=== PATIENT | female | born 1955 | race Caucasian/White ===

== ENCOUNTER 2020-06-25 12:36 | Emergency (ER) | payer OTHER, SELFPAY ==
[2020-06-25 12:47] VITALS: BP 164/76; PULSE 105; RESP 18; TEMP 37.3; O2SAT 98; BMI 20.1
[2020-06-25 12:53] VITALS: BP 148/84; PULSE 101; RESP 15; O2SAT 97
--- NOTE | 2020-06-25 12:54 | XRR_ITS ---
PROCEDURE INFORMATION: Exam: XR Right Elbow Exam date and time: 06/25/2020 1:38 PM Age: 64 years old Clinical indication: Pain and injury or trauma; Initial encounter; Blunt trauma (contusions or hematomas; Right; Injury date: 06/25/20; Patient HX: Fall over pallet lucila today, tailbone and elbow pain; Additional info: Pain after fall TECHNIQUE: Imaging protocol: XR Right elbow. Views: 3 or more views. COMPARISON: No relevant prior studies available. FINDINGS: Bones/joints: No fracture. No dislocation. No anterior or posterior fat pad sign. Soft tissues: Soft tissue calcification present adjacent to the lateral humeral epicondyle which could be due to epicondylitis. XR/XR elbow RT min 3V* [id number] IMPRESSION: No acute osseous abnormality.
--- NOTE | 2020-06-25 12:54 | XRR_ITS ---
PROCEDURE INFORMATION: Exam: XR Bilateral Hips with Pelvis when Performed Exam date and time: 06/25/2020 1:42 PM Age: 64 years old Clinical indication: Pain and injury or trauma; Fall; Initial encounter; Blunt trauma (contusions or hematomas); Does not apply; Pelvic region; Pelvic pain; Injury date: 06/25/20; Injury details: Fell over pallet lucila, elbow and tailbone pain; Additional info: Pain after fall TECHNIQUE: Imaging protocol: XR bilateral hips with pelvis when performed. Views: 2 views. COMPARISON: No relevant prior studies available. FINDINGS: Bones/joints: No fracture. No dislocation. The symphysis pubis and sacroiliac joints are not diastatic. No hip joint space narrowing. There is partial sacralization of the L5 segment on the left. Soft tissues: No acute soft tissue abnormality. XR/XR hip BI m 5V wo/w pel* [id number] IMPRESSION: No acute osseous abnormality.
--- NOTE | 2020-06-25 13:18 | W.ED.FALL ---
HPI - Fall General: Chief Complaint: Fall Stated Complaint: fell over pallet lucila/ workers comp? Time Seen by Provider: 06/25/20 13:13 History of Present Illness: HPI Narrative: 64-year-old female patient presents to the emergency department with complaints of fall. She did fall occurred at work. She reports was walking backwards, pulling loaded pallet when she tripped over an empy pallet landing on her buttocks. She reports pain in the pelvis when she walks, posterior hips. Reports right elbow pain but denies limited range of motion or limited mobility. States did hit her head on a plastic trash can, did not lose consciousness denies bleeding, denies nausea vomiting or abdominal pain. MD complaint: fall Associated symptoms-after fall: Denies abdominal pain, chest pain, headache(s) or neck pain Review of Systems General: Reports: 10 or more systems reviewed and unremarkable except in HPI and below Const: Denies: fever(s), chills or diaphoresis Eyes: Denies: blurry vision or eye redness ENMT: Denies: throat pain, dental pain or disequilibrium Card: Denies: chest pain, palpitations or irregular heart rhythm Resp: Denies: dyspnea, productive cough, non-productive cough or wheezing GI: Denies: abdominal pain, nausea or vomiting : Denies: difficulty voiding or dysuria Musc: Reports: extremity pain (bilateral hips); Denies: neck pain, back pain or limited range of motion Skin/Breast: Denies: rash or pruritus Neuro: Denies: headache(s), weakness in extremities or behavioral changes Amrit/Lymph: Denies: easy bruising Physical Exam Const: COMMON NORMALS: no acute distress, patient oriented x3, healthy appearing and alert GENERAL APPEARANCE: cooperative, comfortable and well hydrated HENMT: COMMON NORMALS: normocephalic, Normal external nose present and moist oral mucous membranes HEAD & SCALP: normocephalic NOSE: Normal external nose present Eye: COMMON NORMALS: Equal, round and reactive pupils present and EOMs intact bilaterally GENERAL EYE: appearance normal, both eyes and all related structures PUPIL: Yes Equal, round and reactive pupils present Neck/C-Spine: COMMON NORMALS: full ROM and no lymphadenopathy GENERAL: Yes normal visual inspection and Yes trachea midline CERVICAL SPINE: Yes cervical ROM normal, No pain with cervical ROM, No Cervical spine tenderness and No Paracervical muscle tenderness Lymph: LYMPHATIC: no lymphadenopathy noted Chest: COMMONS NORMALS: normal inspection of the chest Resp: COMMON NORMALS: normal respiratory effort and clear to auscultation bilaterally AUSCULTATION: clear to auscultation bilaterally Cardio: COMMON NORMALS: regular rhythm, S1 normal heart sound present, S2 normal heart sound present and Peripheral pulses 2+ throughout RHYTHM: regular rhythm HEART SOUNDS: S1 normal heart sound present and S2 normal heart sound present PERIPHERAL PULSES: Peripheral pulses 2+ throughout GI: COMMON NORMALS: Normal to inspection, nondistended, normoactive bowel sounds present, Soft to palpation and non-tender INSPECTION: Yes normal to inspection PALPATION: Yes Soft to palpation : COMMON NORMALS: Yes no CVA tenderness BLADDER/KIDNEY EXAM: Yes no CVA tenderness Back/Pelvis: COMMON NORMALS: no CVA tenderness and thoracic and lumbar spine normal to inspection THORACIC SPINE/UPPER BACK: Yes normal to inspection, Yes thoracic ROM normal and No thoracic spinal tenderness LUMBAR SPINE/LOWER BACK: Yes normal to inspection, Yes lumbar ROM normal and No lumbar spinal tenderness PELVIS: Yes buttocks normal SACROILIAC JOINTS: Yes SI joints normal SACRUM: no ecchymosis Extremity: COMMON NORMALS: normal to inspection and capillary refill normal Neuro: COMMON NORMALS: patient oriented x3 and no focal motor deficits SENSORIUM/ORIENTATION: Yes alert Psych: COMMON NORMALS: mental status grossly normal, Normal thought process present and cooperative ACTIVITY/MOTOR BEHAVIOR: Yes appropriate eye contact THOUGHT PROCESS: Normal thought process present Skin: COMMON NORMALS: no rashes or lesions noted and turgor normal SKIN IMAGES (FEMALE): 1. small 2 cm linear superficial abrasion noted GENERAL SKIN EXAM: no rashes or lesions noted and turgor normal Course Vital Signs: Vital signs: Vital Signs Temperature 98.1 F 06/25/20 14:38 Pulse Rate 95 06/25/20 14:38 Respiratory Rate 15 06/25/20 14:38 Blood Pressure 119/71 06/25/20 14:38 Pulse Oximetry 97 06/25/20 12:53 MDM - Fall Imaging Data^: Xray Ortho: Radiologist's impression: [address] [address] XRay Report Signed Patient: Aniyah Hampton #: [id number] : 6Acc#:[id number] Age/Sex: 64 / FADM Date: 06/25/20 Loc: ERRoom/Bed: Attending Dr: Ordering Provider/Ordering MD: Bryan Bermudez DO Date of Service: 06/25/20 Procedure(s): XR hip BI m 5V wo/w pel* [id number] Accession Number(s): [id number] Report Number: [id number] PROCEDURE INFORMATION: Exam: XR Bilateral Hips with Pelvis when Performed Exam date and time: 06/25/2020 1:42 PM Age: 64 years old Clinical indication: Pain and injury or trauma; Fall; Initial encounter; Blunt trauma (contusions or hematomas); Does not apply; Pelvic region; Pelvic pain; Injury date: 06/25/20; Injury details: Fell over pallet lucila, elbow and tailbone pain; Additional info: Pain after fall TECHNIQUE: Imaging protocol: XR bilateral hips with pelvis when performed. Views: 2 views. COMPARISON: No relevant prior studies available. FINDINGS: Bones/joints: No fracture. No dislocation. The symphysis pubis and sacroiliac joints are not diastatic. No hip joint space narrowing. There is partial sacralization of the L5 segment on the left. Soft tissues: No acute soft tissue abnormality. XR/XR hip BI m 5V wo/w pel* [id number] IMPRESSION: No acute osseous abnormality. Dictated By:Polo Patel Other Xray: Radiologist's impression: [place] [address] XRay Report Signed Patient: Aniyah Hampton Unit #: [id number] : 1955 Age/Sex: 64 / F ADM Date: 06/25/20 Loc: ER Room/Bed: Attending Dr: Ordering Provider/Ordering MD: Bryan Bermudez DO Date of Service: 06/25/20 Procedure(s): XR elbow RT min 3V* [id number] Accession Number(s): [id number] Report Number: [id number] PROCEDURE INFORMATION: Exam: XR Right Elbow Exam date and time: 06/25/2020 1:38 PM Age: 64 years old Clinical indication: Pain and injury or trauma; Initial encounter; Blunt trauma (contusions or hematomas; Right; Injury date: 06/25/20; Patient HX: Fall over pallet lucila today, tailbone and elbow pain; Additional info: Pain after fall TECHNIQUE: Imaging protocol: XR Right elbow. Views: 3 or more views. COMPARISON: No relevant prior studies available. FINDINGS: Bones/joints: No fracture. No dislocation. No anterior or posterior fat pad sign. Soft tissues: Soft tissue calcification present adjacent to the lateral humeral epicondyle which could be due to epicondylitis. XR/XR elbow RT min 3V* [id number] IMPRESSION: No acute osseous abnormality. Dictated By: Polo Patel Signed By: Polo Patel Signed Date/Time: 06/25/20 1409 Discharge Plan Discharge Patient Disposition: Home Clinical Impression: Fall against object, Contusion of right hip, initial encounter Contusion of hip, left Qualifiers: Encounter type: initial encounter Qualified Code(s): S70.02XA - Contusion of left hip, initial encounter Elbow abrasion Qualifiers: Encounter type: initial encounter Laterality: right Qualified Code(s): S50.311A - Abrasion of right elbow, initial encounter Condition: Stable Prescriptions: No Action Calcium 500 1 tab PO DAILY RF: 0 Discharge Orders: Discharge Order (Routine); Ordered 06/25/20 Ordered By: Neema Sheppard Referrals: Rafael Felder MD [Primary Care Provider] - Discharge Diet: Usual diet Discharge Activity: Resume usual activity Patient Instructions: Minor Head Injury (ED), Contusion in Adults (ED), Abrasion (ED), Fall Prevention (ED) Activity Restrictions/Additional Instructions: You may take ibuprofen and Tylenol as needed for pain You may experience increased soreness and pain over the next 2 to 3 days If you develop muscle weakness or incontinence of bowel or bladder, change of personality or nausea vomiting/abdominal pain return to the emergency room for further work-up. Discharge Date/Time: 06/25/20 14:39 Coding Level of Care Code ED Night Coordinator for [facility] Exam Comprehensive
[2020-06-25 14:38] VITALS: BP 119/71; PULSE 95; RESP 15; TEMP 36.7
== END 2020-06-25 14:39 | disposition home or self-care (01) ==
PROVIDERS: Emergency Provider Nurse Practitioner Family; PCP Family Medicine
DX: S70.02XA Contusion of left hip, initial encounter (principal); S50.311A Abrasion of right elbow, initial encounter; S70.01XA Contusion of right hip, initial encounter; W18.09XA Striking against other object with subsequent fall, initial encounter; Y99.0 Civilian activity done for income or pay
CPT/HCPCS: 12345; 73080; 73523; 99281; 99283

== ENCOUNTER 2020-08-22 14:06 | Outpatient (RCR) | payer OTHER, SELFPAY | END 2020-09-16 23:59 | disposition home or self-care (01) | LOC: SPT 14:06 | PROVIDERS: PCP Family Medicine; Referring Provider Family Medicine; Visit Provider Family Medicine | DX: S30.0XXD Contusion of lower back and pelvis, subsequent encounter (principal); X58.XXXD Exposure to other specified factors, subsequent encounter | CPT/HCPCS: 97110; 97162 ==

== ENCOUNTER 2020-09-17 06:00 | Outpatient (RCR) | payer OTHER, SELFPAY | END 2020-10-04 23:00 | disposition home or self-care (01) | LOC: SPT 06:00 | PROVIDERS: PCP Family Medicine; Referring Provider Family Medicine; Visit Provider Family Medicine | DX: S30.0XXD Contusion of lower back and pelvis, subsequent encounter (principal); X58.XXXD Exposure to other specified factors, subsequent encounter | CPT/HCPCS: 97110 ==

== ENCOUNTER 2020-11-11 07:00 | Outpatient (CLI) | payer OTHER, SELFPAY ==
--- NOTE | 2020-11-11 07:15 | MR_ITS ---
WS: [id number] MRI RIGHT SHOULDER NONCONTRAST TECHNIQUE: Sagittal T2, coronal T1, T2 and proton density imaging. Axial gradient PDE imaging. CLINICAL INFORMATION: continued pain in shoulder injured 06/25/20 COMPARISON: None. FINDINGS: Mild degenerative arthritis AC joint. Mild downsloping acromion. Subacromial spurring. Moderate narro wing of the subacromial space. Tendinopathy in the distal supraspinatus. Normal infraspinatus. Normal teres minor and subscapularis. No high-grade rotator cuff tears. Normal biceps tendon in the bicipital groove. Normal biceps labral anchor. Small anterior superior la bral tear. Degenerative fraying of the glenoid labrum. MR/MR shoulder RT wo con* [id number] IMPRESSION: 1. Mild degenerative arthritis AC joint with mild downsloping acromion. 2. Tendinopathy in the distal supraspinatus. No high-grade rotator cuff tears. 3. Normal biceps tendon in the bicipital groove. 4. Small chronic appearing anterior superior labral tear. Normal biceps labral anchor.
== END 2020-11-11 07:01 | disposition home or self-care (01) ==
LOC: RADSHAW 07:02
PROVIDERS: PCP Family Medicine; Visit Provider Family Medicine
DX: M25.511 Pain in right shoulder (principal)
CPT/HCPCS: 73221

== ENCOUNTER → 2020-11-20 16:01 | Outpatient (BNVA) | payer OTHER, SELFPAY | PROVIDERS: PCP Family Medicine; Referring Provider Family Medicine; Visit Provider Specialist | DX: S43.431D Superior glenoid labrum lesion of right shoulder, subsequent encounter; S46.211D Strain of muscle, fascia and tendon of other parts of biceps, right arm, subsequent encounter; M25.511 Pain in right shoulder; W19.XXXD Unspecified fall, subsequent encounter | CPT/HCPCS: 73030 ==

== ENCOUNTER 2020-12-16 13:15 | Outpatient (CLI) | payer OTHER, SELFPAY ==
--- NOTE | 2020-12-16 13:22 | MR_ITS ---
WS: [id number] MRI RIGHT SHOULDER ARTHROGRAM TECHNIQUE: Sagittal T2, coronal T1, T2 and proton density imaging. Axial gradient PDE imaging. Post a rthrogram imaging. CLINICAL INFORMATION: M25.519 - Pain in unspecified shoulder COMPARISON: November 11, 2020 FINDINGS: Adequate opacification of the shoulder capsule with good distention. Normal biceps labral a nchor. Fissuring involving the anterosuperior glenoid labrum parallels the glenoid and most likely re present sublabral foramen rather than SLAP tear. Biceps labral anchor appears intact. Recommend corre lation with shoulder instability. Labrum is otherwise intact. Normal middle glenohumeral ligament. No rmal intra-articular biceps tendon. No other significant changes from previous. MR/MR shoulder RT wo/w con [id number] IMPRESSION: 1. Fissuring at the anterosuperior labrum likely represent sublabral foramen r ather than SLAP tear. Recommend correlation shoulder instability. 2. Normal middle glenohumeral ligament. 3. Normal biceps labral anchor. 4. No other changes from previous.
--- NOTE | 2020-12-16 13:30 | IR_ITS ---
WS: [id number] SHOULDER ARTHROGRAM RIGHT Fluoroscopic guided right shoulder arthrogram CLINICAL INFORMATION: M25.519 - Pain in unspecified shoulder COMPARISON: None. PROCEDURE: The procedure including risks, benefits and complications were discussed with the patient, who agreed to proceed. Using sterile technique, the patient was prepped and draped in the usual ster ile fashion. After 1% lidocaine injection using fluoroscopic guidance, a 22-gauge spinal needle was a dvanced into the glenohumeral joint. Approximately 13 ml of a solution containing 10ml normal saline, 5 ml Omnipaque 240, 5 ml 1% lidocaine, and 0.1 ml gadolinium was administered. No immediate complica tions. FLUOROSCOPY TIME: 0.4 minutes. IR/IR arthrogram shoulderRT [id number] IMPRESSION: Uncomplicated fluoroscopic-guided right shoulder arthrogram. MRI to follow.
[2020-12-16] MEDS: iohexol 240 mg/mL 50 mL Btl INTRA-ARTI (14:20)
== END 2020-12-16 13:16 | disposition home or self-care (01) ==
PROVIDERS: PCP Family Medicine; Visit Provider Specialist
DX: M25.511 Pain in right shoulder (principal)
CPT/HCPCS: 23350; 73223; 77002; A9577; Q9966

== ENCOUNTER 2020-12-26 14:27 | Outpatient (CLI) | payer MEDICARE, OTHER, SELFPAY ==
--- NOTE | 2020-12-26 14:39 | XR_ITS ---
WS: [id number] DEXA (DUAL ENERGY X-RAY ABSORPTIOMETRY) Bone mineral density was performed using a [employer] OTR machine. HISTORY: OSTEOPOROSIS COMPARISON: None available. Lumbar spine BMD (L1-L4): 0.771 g/cm2 T score: -3.4 Z score: -1.6 Total hip BMD: Left: 0.711 g/cm2. T score: -2.4 Z score: -1.0 Right: 0.725 g/cm2. T score: -2.2 Z score: -0.9 10 year probability of a major osteoporotic fracture is 11%. XR/XR DEXA axial skeleton* [id number] IMPRESSION: OSTEOPOROSIS based upon the WHO classification for females.
== END 2020-12-26 14:28 | disposition home or self-care (01) ==
LOC: RADWPI 14:36
PROVIDERS: PCP Family Medicine; Visit Provider Family Medicine
DX: M81.0 Age-related osteoporosis without current pathological fracture (principal)
CPT/HCPCS: 77080

== ENCOUNTER 2021-01-09 08:35 | Outpatient (RCR) | payer OTHER, SELFPAY | END 2021-01-15 23:59 | disposition home or self-care (01) | LOC: SPT 08:35 | PROVIDERS: PCP Family Medicine; Referring Provider Specialist; Visit Provider Specialist | DX: M75.01 Adhesive capsulitis of right shoulder (principal) | CPT/HCPCS: 97110; 97161 ==

== ENCOUNTER 2021-01-16 06:00 | Outpatient (RCR) | payer OTHER, SELFPAY | END 2021-02-14 23:59 | disposition home or self-care (01) | LOC: SPT 06:00 | PROVIDERS: PCP Family Medicine; Referring Provider Specialist; Visit Provider Specialist | DX: M75.01 Adhesive capsulitis of right shoulder (principal) | CPT/HCPCS: 97110 ==

== ENCOUNTER → 2021-02-13 08:59 | Outpatient (BNVA) | payer OTHER, MEDICARE, SELFPAY | PROVIDERS: PCP Family Medicine; Visit Provider Internal Medicine Rheumatology | DX: M81.0 Age-related osteoporosis without current pathological fracture (principal); M27.40 Unspecified cyst of jaw; M54.5 Low back pain; G89.29 Other chronic pain; Z79.899 Other long term (current) drug therapy | CPT/HCPCS: 99204 ==

== ENCOUNTER 2021-02-13 11:02 | Outpatient (CLI) | payer OTHER, MEDICARE, SELFPAY ==
--- NOTE | 2021-02-13 11:14 | XR_ITS ---
WS: [id number] Exam: XR pelvis 1-2V* [id number] Date/Time of Exam: 02/13/2021 11:20 AM Reason For Exam: M54.5 - Low back pain No fracture or dislocation. Mild DJD of the SI joints. The hips are intact. Normal soft tissues. XR/XR pelvis 1-2V* 78961 IMPRESSION: 1. No fracture or bone destruction. 2. Mild SI joint DJD.
--- NOTE | 2021-02-13 11:14 | XR_ITS ---
WS: [id number] Exam: XR lumbar spine 2-3V* [id number] Date/Time of Exam: 02/13/2021 11:20 AM Reason For Exam: M54.5 - Low back pain Comparison 02/13/2021. No fracture or dislocation. Disc spaces are preserved. Posterior elements are intact. Partial sacrali zation of L5. 2 mm calcification superimposes the right kidney and could represent a renal stone. XR/XR lumbar spine 2-3V* [id number] IMPRESSION: 1. No fracture or malalignment noted. 2. Possible small right renal stone.
[2021-02-13 11:49] LABS: Basophils % 0.7 %; Eosinophils # 0.1 10^3/uL (0.0-0.8); Eosinophils % 2.4 %; Hematocrit 40.7 % (37.0-47.0); Lymphocytes # 1.5 10^3/uL (0.8-4.8); Mean Corpuscular HGB Conc 31.9 g/dL (30.0-36.0); Mean Corpuscular Hemoglobin 30.1 pg (28.0-34.0); Mean Corpuscular Volume 94.2 fL (81-99); Mean Platelet Volume 8.7 fL (7.4-10.4); Monocytes # 0.4 10^3/uL (0.2-0.9); Monocytes % 8.5 %; Neutrophils % 51.2 %; Nucleated Red Blood Cells % 0 %; Platelet Count 264 10^3/cmm (130-400); Red Blood Count 4.32 10^6/uL (4.1-5.3); Red Cell Distribution Width 12.6 % (12.1-15.1); White Blood Count 4.1 10^3/uL (4.0-10.0)
[2021-02-13 12:25] LABS: 25 Hydroxy Vitamin D 47 ng/mL (30-100); Calcium 9.1 mg/dL (8.5-10.5); Magnesium 2.2 mg/dL (1.7-2.3); Phosphorus 3.9 mg/dL (2.5-4.5); Thyroid Stimulating Hormone 1.19 uIU/mL (0.27-4.20)
[2021-02-13 13:00] LABS: Parathyroid Hormone 28.2 pg/mL (15-65)
== END 2021-02-13 11:03 | disposition home or self-care (01) ==
PROVIDERS: PCP Family Medicine; Visit Provider Internal Medicine Rheumatology
DX: G89.29 Other chronic pain (principal); M54.5 Low back pain; M81.0 Age-related osteoporosis without current pathological fracture; Z79.899 Other long term (current) drug therapy
CPT/HCPCS: 36415; 72100; 72170; 82306; 82310; 83735; 83970; 84100; 84443; 85025

== ENCOUNTER → 2021-04-10 13:27 | Outpatient (BNVA) | payer OTHER, MEDICARE, SELFPAY | PROVIDERS: PCP Family Medicine; Visit Provider Internal Medicine Rheumatology | DX: M81.0 Age-related osteoporosis without current pathological fracture (principal); M27.40 Unspecified cyst of jaw | CPT/HCPCS: 99213 ==

== ENCOUNTER 2021-08-29 11:29 | Outpatient (CLI) | payer MEDICARE, OTHER, SELFPAY ==
[2021-08-29 11:38] VITALS: BMI 20.1
[2021-08-29 11:40] VITALS: BP 126/72; PULSE 63; RESP 16; TEMP 36.6; O2SAT 99
[2021-08-29 13:38] VITALS: BP 109/67; PULSE 59; RESP 16; TEMP 36.3; O2SAT 98
== END 2021-08-29 11:30 | disposition home or self-care (01) ==
LOC: OPS 11:54
PROVIDERS: PCP Family Medicine; Visit Provider Family Medicine
DX: U07.1 COVID-19 (principal)
CPT/HCPCS: 96365

== ENCOUNTER → 2021-09-09 10:25 | Outpatient (BNVA) | payer MEDICARE, OTHER, SELFPAY | PROVIDERS: PCP Family Medicine; Visit Provider Internal Medicine Rheumatology | DX: Z79.899 Other long term (current) drug therapy (principal); M81.0 Age-related osteoporosis without current pathological fracture | CPT/HCPCS: 36415; 80076; 82565; 85025; 86140 ==

== ENCOUNTER → 2021-10-06 13:52 | Outpatient (BNVA) | payer MEDICARE, OTHER, SELFPAY | PROVIDERS: PCP Family Medicine; Visit Provider Internal Medicine Rheumatology | DX: M81.0 Age-related osteoporosis without current pathological fracture (principal); Z79.899 Other long term (current) drug therapy | CPT/HCPCS: 99214 ==

== ENCOUNTER 2021-11-11 08:15 | Outpatient (CLI) | payer MEDICARE, OTHER, SELFPAY ==
--- NOTE | 2021-11-11 08:23 | XR_ITS ---
WS: [id number] Chest 2 views, 11/11/2021 Clinical Data: DYSPNEA Comparison: None. Findings: No nodules, masses or effusions are seen. The heart is normal. The pulmonary vascularity is not increased. No pneumonia or pneumothorax is seen. The aortic arch and descending thoracic aorta s how tortuosity. XR/XR chest 2V* 72902 Impression: Atherosclerosis.
== END 2021-11-11 08:16 | disposition home or self-care (01) ==
LOC: RAD 08:18
PROVIDERS: PCP Family Medicine; Visit Provider Family Medicine
DX: R06.00 Dyspnea, unspecified (principal); I70.90 Unspecified atherosclerosis
CPT/HCPCS: 71046

== ENCOUNTER → 2022-01-08 09:54 | Outpatient (BNVA) | payer MEDICARE, OTHER, SELFPAY | PROVIDERS: PCP Family Medicine; Visit Provider Internal Medicine Cardiovascular Disease | DX: R07.9 Chest pain, unspecified (principal); R00.2 Palpitations; Z82.49 Family history of ischemic heart disease and other diseases of the circulatory system; R06.02 Shortness of breath ==

== ENCOUNTER 2022-03-23 16:27 | Outpatient (CLI) | payer MEDICARE, OTHER, SELFPAY ==
[2022-03-23 16:59] LABS: Basophils % 0.7 %; Eosinophils # 0.1 10^3/uL (0.0-0.8); Eosinophils % 1.5 %; Hematocrit 39.7 % (37.0-47.0); Hemoglobin 13.1 g/dL (11.5-15.3); Lymphocytes # 2.1 10^3/uL (0.8-4.8); Lymphocytes % 36.5 %; Mean Corpuscular Hemoglobin 30.3 pg (28.0-34.0); Mean Corpuscular Volume 91.9 fl (81-99); Mean Platelet Volume 9.2 fL (7.4-10.4); Monocytes # 0.4 10^3/uL (0.2-0.9); Neutrophils # 3.24 10^3/uL (1.8-7.7); Neutrophils % 55.1 %; Nucleated Red Blood Cells % 0 %; Platelet Count 228 10^3/cmm (130-400); Red Blood Count 4.32 10^6/uL (4.1-5.3); White Blood Count 5.9 10^3/uL (4.0-10.0)
[2022-03-23 17:43] LABS: Alanine Aminotransferase 16 U/L (0-33); Albumin Level 4.8 g/dL (3.5-5.2); Alkaline Phosphatase 58 IU/L (35-105); Aspartate Amino Transferase 21 U/L (0-32); Calcium 9.7 mg/dL (8.5-10.5); Globulin 2.5 g/dL (1.3-4.6); Total Bilirubin 0.2 mg/dL (0.15-1.2); Total Protein 7.3 g/dL (6.6-8.7)
[2022-03-23 18:04] LABS: 25 Hydroxy Vitamin D > 100 ng/mL (30-100)
== END 2022-03-23 16:28 | disposition home or self-care (01) ==
LOC: LAB 16:32
PROVIDERS: PCP Family Medicine; Visit Provider Internal Medicine Rheumatology
DX: Z79.899 Other long term (current) drug therapy (principal); M81.0 Age-related osteoporosis without current pathological fracture
CPT/HCPCS: 36415; 80076; 82040; 82306; 82310; 82565; 85025; 86140

== ENCOUNTER → 2022-03-24 12:37 | Outpatient (BNVA) | payer MEDICARE, OTHER, SELFPAY | PROVIDERS: PCP Family Medicine; Visit Provider Internal Medicine Rheumatology | DX: M81.0 Age-related osteoporosis without current pathological fracture (principal); Z79.899 Other long term (current) drug therapy | CPT/HCPCS: 99214 ==

== ENCOUNTER → 2022-04-14 10:52 | Outpatient (BNVA) | payer MEDICARE, OTHER, SELFPAY | PROVIDERS: PCP Family Medicine; Visit Provider Internal Medicine Cardiovascular Disease | DX: R00.2 Palpitations (principal); R06.02 Shortness of breath; R07.9 Chest pain, unspecified; Z82.49 Family history of ischemic heart disease and other diseases of the circulatory system | CPT/HCPCS: 99213; 99214 ==

== ENCOUNTER 2022-06-30 09:43 | Outpatient (CLI) | payer MEDICARE, OTHER, SELFPAY ==
[2022-06-30 10:17] LABS: Basophils % 0.7 %; Eosinophils % 0.4 %; Hematocrit 38.3 % (37.0-47.0); Hemoglobin 12.6 g/dL (11.5-15.3); Lymphocytes # 0.7 10^3/uL (0.8-4.8); Lymphocytes % 24.5 %; Mean Corpuscular HGB Conc 32.9 g/dL (30.0-36.0); Mean Corpuscular Hemoglobin 30.4 pg (28.0-34.0); Mean Corpuscular Volume 92.3 fl (81-99); Mean Platelet Volume 8.6 fL (7.4-10.4); Monocytes # 0.4 10^3/uL (0.2-0.9); Monocytes % 14.4 %; Neutrophils # 1.67 10^3/uL (1.8-7.7); Nucleated Red Blood Cells % 0 %; Platelet Count 187 10^3/cmm (130-400); Red Blood Count 4.15 10^6/uL (4.1-5.3); Red Cell Distribution Width 12.5 % (12.1-15.1); White Blood Count 2.8 10^3/uL (4.0-10.0)
[2022-06-30 10:41] LABS: Erythrocyte Sedimentation Rate 4 mm/hr (0-15)
[2022-06-30 10:49] LABS: Alanine Aminotransferase 18 U/L (0-33); Albumin Level 4.5 g/dL (3.5-5.2); Alkaline Phosphatase 77 U/L (35-105); Aspartate Amino Transferase 24 U/L (0-32); Calcium 9.4 mg/dL (8.5-10.5); Globulin 2.4 g/dL (1.3-4.6); Magnesium 1.9 mg/dL (1.7-2.3); Potassium 4.3 mmol/L (3.5-5.1); Total Bilirubin 0.2 mg/dL (0.15-1.2); Total Protein 6.9 g/dL (6.6-8.7)
[2022-06-30 11:02] LABS: 25 Hydroxy Vitamin D 77 ng/mL (30-100)
== END 2022-06-30 09:44 | disposition home or self-care (01) ==
LOC: LAB 09:46
PROVIDERS: PCP Family Medicine; Visit Provider Internal Medicine Rheumatology
DX: R53.83 Other fatigue (principal); M81.0 Age-related osteoporosis without current pathological fracture; Z79.899 Other long term (current) drug therapy
CPT/HCPCS: 36415; 80076; 82306; 82310; 82565; 83735; 84132; 85025; 85651; 86140

== ENCOUNTER 2022-07-07 06:54 | Outpatient (CLI) | payer MEDICARE, OTHER, SELFPAY ==
[2022-07-07 07:08] VITALS: BMI 20.1
--- NOTE | 2022-07-07 07:09 | ECG_ITS ---
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 Interpretive Statements NAME OF STUDY: EXERCISE SESTAMIBI STRESS TEST INDICATION: Chest Pain Baseline blood pressure of 118/71 mm Hg, heart rate of 56 beats per minute and oxygen saturation of 97%. EKG showed sinus bradycardia, left axis deviation and incomplete right bundle branch. Possible left atrial enlargement. The patient exercised for 9 minutes 41 seconds on a standard Stefan protocol. Patient attained a maximum heart rate of 148 beats per minute(96% of the maximum predicted heart rate) with a blood pressure at the peak exercise of 201/80 mm Hg and oxygen saturation 89%. The EKG at the peak exercise revealed sinus tachycardia with no significant ST-T wave changes. Patient did not have any chest pain or any significant arrhythmis with the exercise During the recovery phase, there were no new changes. Blood pressure at the end of the recovery phase was 115/77 mm Hg with a heart rate of 81 beats per minute and oxygen saturation of 99%. CONCLUSION: 1. Normal EKG response to treadmill exercise. 2. No exercise-induced chest pain or cardiac arrhythmia. 3. Excellent exercise tolerance, attained a maximum of 13.5 METs. Maximum VO2 of third 47.3 mL/kg/min. 4. Baseline normal blood pressure with normal response to exercise. 5. Perfusion scan will be documented separately. Electronically Signed On 07-07-2022 13:07:23 CDT by Kennedi Benjamin M.D. [email or web address] [facility].[employer]/[id number]
--- NOTE | 2022-07-07 07:09 | NMCV_ITS ---
NM chiov perf SPECT r/s* [id number] Aniyah Hampton Age: 66 Gender: F : 1955 Exam Date: 07/07/2022 07:09 Ordering Phys: Kennedi Benjamin MD ([email or web address]) Technologist: HERMELINDO Patrick Exam Location: [facility] Indications: CHEST PAIN STRESS TEST Please see separate stress test report in [facility] for full findings IMAGE PROTOCOL Rest/Stress 1 Exercise Day Radiopharmaceutical Dose (mCi) Administration Site Administered by Rest: Tc-99m 10.9 IV HERMELINDO Caldera Sestamibi Stress:Tc-99m 32.6 IV HERMELINDO Caldera Sestamibi Rest: 07-Jul-2022 60 Discovery 630 Stress: 07-Jul-2022 30 Discovery 630 Radiopharmaceutical was injected at 90% maximum heart rate. Images obtained in supine and prone position. SPECT RESULTS Technical Quality: Excellent Raw Data Analysis: Normal Image Corrections: No attenuation or motion correction applied Summed Stress Score: 0 Summed Rest Score: 0 Summed Difference Score: 0 PERFUSION FINDINGS SPECT images demonstrate homogeneous tracer distribution throughout the myocardium. FUNCTIONAL RESULTS (calculated via Gated SPECT) Stress Image LV EF (%): 81 Stress EDV (mL):57 TID: 1 Stress ESV (mL):11 FUNCTIONAL FINDINGS: The left ventricle is normal in size. Transient Ischemia Dilatation of 1. There is normal left ventricular systolic function. The left ventricular ejection fraction is normal with a value of 81%. There is hyperdynamic left ventricular wall thickening. IMPRESSIONS 1. Myocardial perfusion imaging is normal. 2. Overall left ventricular systolic function is normal without regional wall motion abnormalities, LVEF=81%. 3. No EKG changes with exercise. Refer to separate report for details. Kennedi Benjamin MD (Electronically Signed) Final Date: 07 July 2022 13:01 S
[2022-07-07 09:16] VITALS: BP 110/78; PULSE 78
== END 2022-07-07 06:55 | disposition home or self-care (01) ==
LOC: CDL 06:56
PROVIDERS: PCP Family Medicine; Visit Provider Internal Medicine Cardiovascular Disease
DX: R07.9 Chest pain, unspecified (principal)
CPT/HCPCS: 78452; 93017; A9500

== ENCOUNTER 2022-07-07 09:59 | Outpatient (CLI) | payer MEDICARE, OTHER, SELFPAY ==
[2022-07-07 10:46] LABS: Basophils % 1.1 %; Eosinophils # 0.1 10^3/uL (0.0-0.8); Eosinophils % 1.6 %; Hemoglobin 12.2 g/dL (11.5-15.3); Lymphocytes # 1.5 10^3/uL (0.8-4.8); Lymphocytes % 38.9 %; Mean Corpuscular Hemoglobin 30.3 pg (28.0-34.0); Mean Platelet Volume 8.9 fL (7.4-10.4); Monocytes # 0.3 10^3/uL (0.2-0.9); Monocytes % 7.2 %; Neutrophils % 50.9 %; Nucleated Red Blood Cells % 0 %; Platelet Count 238 10^3/cmm (130-400); Red Blood Count 4.02 10^6/uL (4.1-5.3); Red Cell Distribution Width 12.3 % (12.1-15.1); White Blood Count 3.7 10^3/uL (4.0-10.0)
[2022-07-07 11:07] LABS: Albumin Level 4.1 g/dL (3.5-5.2)
== END 2022-07-07 10:00 | disposition home or self-care (01) ==
LOC: LAB 10:04
PROVIDERS: PCP Family Medicine; Visit Provider Internal Medicine Rheumatology
DX: R79.89 Other specified abnormal findings of blood chemistry (principal); Z79.899 Other long term (current) drug therapy
CPT/HCPCS: 36415; 82040; 85025

== ENCOUNTER 2022-07-14 09:23 | Outpatient (CLI) | payer MEDICARE, OTHER, SELFPAY ==
[2022-07-14 09:49] LABS: Ionized Calcium 1.2 mmol/L (1.1-1.4)
[2022-07-14 09:50] LABS: Basophils # 0.1 10^3/uL (0.0-0.1); Basophils % 1.5 %; Eosinophils % 1.2 %; Hematocrit 36.8 % (37.0-47.0); Hemoglobin 12.1 g/dL (11.5-15.3); Lymphocytes # 1.3 10^3/uL (0.8-4.8); Lymphocytes % 36.9 %; Mean Corpuscular HGB Conc 32.9 g/dL (30.0-36.0); Mean Corpuscular Volume 91.3 fl (81-99); Mean Platelet Volume 8.8 fL (7.4-10.4); Monocytes # 0.3 10^3/uL (0.2-0.9); Monocytes % 8.3 %; Neutrophils # 1.77 10^3/uL (1.8-7.7); Neutrophils % 52.1 %; Nucleated Red Blood Cells % 0 %; Platelet Count 243 10^3/cmm (130-400); Red Blood Count 4.03 10^6/uL (4.1-5.3); Red Cell Distribution Width 12.4 % (12.1-15.1); White Blood Count 3.4 10^3/uL (4.0-10.0)
[2022-07-14 10:07] LABS: Calcium 9.7 mg/dL (8.5-10.5); Magnesium 2.1 mg/dL (1.7-2.3); Potassium 4.2 mmol/L (3.5-5.1)
== END 2022-07-14 09:24 | disposition home or self-care (01) ==
LOC: LAB 09:26
PROVIDERS: PCP Family Medicine; Visit Provider Internal Medicine Rheumatology
DX: M81.0 Age-related osteoporosis without current pathological fracture (principal); R06.02 Shortness of breath; Z79.899 Other long term (current) drug therapy
CPT/HCPCS: 36415; 82310; 82330; 83735; 84132; 85025

== ENCOUNTER 2022-08-13 14:30 | Outpatient (CLI) | payer MEDICARE, OTHER, SELFPAY ==
[2022-08-13 15:15] LABS: Basophils % 0.9 %; Eosinophils # 0.1 10^3/uL (0.0-0.8); Eosinophils % 1.5 %; Hematocrit 35.2 % (37.0-47.0); Hemoglobin 11.9 g/dL (11.5-15.3); Lymphocytes # 1.4 10^3/uL (0.8-4.8); Lymphocytes % 31.6 %; Mean Corpuscular HGB Conc 33.8 g/dL (30.0-36.0); Mean Corpuscular Hemoglobin 30.9 pg (28.0-34.0); Mean Corpuscular Volume 91.4 fl (81-99); Mean Platelet Volume 9.3 fL (7.4-10.4); Monocytes # 0.3 10^3/uL (0.2-0.9); Neutrophils # 2.71 10^3/uL (1.8-7.7); Neutrophils % 59.8 %; Nucleated Red Blood Cells % 0 %; Platelet Count 224 10^3/cmm (130-400); Red Blood Count 3.85 10^6/uL (4.1-5.3); Red Cell Distribution Width 12.9 % (12.1-15.1); White Blood Count 4.5 10^3/uL (4.0-10.0)
== END 2022-08-13 14:31 | disposition home or self-care (01) ==
LOC: LAB 14:35
PROVIDERS: PCP Family Medicine; Visit Provider Internal Medicine Rheumatology
DX: M81.0 Age-related osteoporosis without current pathological fracture (principal); Z79.899 Other long term (current) drug therapy
CPT/HCPCS: 36415; 85025; 90686

== ENCOUNTER 2022-09-22 14:02 | Outpatient (CLI) | payer MEDICARE, OTHER, SELFPAY ==
[2022-09-22 14:38] LABS: Basophils # 0.1 10^3/uL (0.0-0.1); Basophils % 1.5 %; Eosinophils % 0.8 %; Hematocrit 40.2 % (37.0-47.0); Hemoglobin 12.9 g/dL (11.5-15.3); Lymphocytes # 1.8 10^3/uL (0.8-4.8); Lymphocytes % 38.2 %; Mean Corpuscular HGB Conc 32.1 g/dL (30.0-36.0); Mean Corpuscular Hemoglobin 29.9 pg (28.0-34.0); Mean Corpuscular Volume 93.1 fl (81-99); Mean Platelet Volume 9.2 fL (7.4-10.4); Monocytes # 0.3 10^3/uL (0.2-0.9); Monocytes % 6.1 %; Neutrophils # 2.53 10^3/uL (1.8-7.7); Neutrophils % 53.2 %; Nucleated Red Blood Cells % 0 %; Platelet Count 242 10^3/cmm (130-400); Red Blood Count 4.32 10^6/uL (4.1-5.3); Red Cell Distribution Width 12.5 % (12.1-15.1); White Blood Count 4.8 10^3/uL (4.0-10.0)
[2022-09-22 15:16] LABS: 25 Hydroxy Vitamin D 71 ng/mL (30-100); Alanine Aminotransferase 20 U/L (0-33); Albumin Level 4.4 g/dL (3.5-5.2); Alkaline Phosphatase 78 U/L (35-105); Aspartate Amino Transferase 24 U/L (0-32); Glomerular Filtration Rate 83.7 mL/min (90-130); Magnesium 2.2 mg/dL (1.7-2.3); Thyroid Stimulating Hormone 1.18 uIU/mL (0.27-4.20); Total Bilirubin 0.2 mg/dL (0.15-1.2); Total Protein 7.4 g/dL (6.6-8.7)
[2022-09-22 15:43] LABS: Free T4 Free Thyroxine 1.26 ng/dL (0.82-1.77)
== END 2022-09-22 14:03 | disposition home or self-care (01) ==
PROVIDERS: PCP Family Medicine; Visit Provider Internal Medicine Rheumatology
DX: M81.0 Age-related osteoporosis without current pathological fracture (principal); Z79.899 Other long term (current) drug therapy; R53.83 Other fatigue
CPT/HCPCS: 36415; 80076; 82306; 82310; 82565; 83735; 84439; 84443; 85025; 86140; 99214

== ENCOUNTER → 2023-03-22 09:40 | Outpatient (BNVA) | payer MEDICARE, OTHER, SELFPAY | PROVIDERS: PCP Family Medicine; Visit Provider Internal Medicine Rheumatology | DX: M81.0 Age-related osteoporosis without current pathological fracture (principal); Z79.899 Other long term (current) drug therapy; R53.83 Other fatigue | CPT/HCPCS: 36415; 80076; 82306; 82310; 82565; 83735; 85025; 86140; 99214 ==

== ENCOUNTER → 2023-04-13 10:29 | Outpatient (BNVA) | payer MEDICARE, OTHER, SELFPAY | PROVIDERS: PCP Family Medicine; Visit Provider Internal Medicine Cardiovascular Disease | DX: R00.2 Palpitations (principal); Z82.49 Family history of ischemic heart disease and other diseases of the circulatory system | CPT/HCPCS: 99213 ==

== ENCOUNTER → 2023-04-14 08:37 | Outpatient (BNVA) | payer MEDICARE, OTHER, SELFPAY | PROVIDERS: PCP Family Medicine; Visit Provider Family Medicine | DX: R53.83 Other fatigue (principal); Z13.1 Encounter for screening for diabetes mellitus; Z79.899 Other long term (current) drug therapy; Z13.220 Encounter for screening for lipoid disorders | CPT/HCPCS: 80061; 82947 ==

== ENCOUNTER → 2023-10-20 14:51 | Outpatient (BNVA) | payer MEDICARE, OTHER, SELFPAY | PROVIDERS: PCP Family Medicine; Visit Provider Internal Medicine Rheumatology | DX: M81.0 Age-related osteoporosis without current pathological fracture (principal); Z79.899 Other long term (current) drug therapy; R53.83 Other fatigue | CPT/HCPCS: 36415; 80076; 82306; 82310; 82565; 85025; 86140; 99214 ==

== ENCOUNTER 2024-04-11 12:44 | Outpatient (CLI) | payer MEDICARE, OTHER, SELFPAY ==
--- NOTE | 2024-04-11 13:00 | XR_ITS ---
WS: [id number] SCREENING DEXA SCAN [employer] CLINICAL INFORMATION: M81.0 - Age-related osteoporosis without current patholog... COMPARISON: 2020 FINDINGS: The L1-L4 bone mineral density measures 0.930 g/cm2. This corresponds to a T score score of -2.1 and Z score of -0.1. Left femoral neck bone mineral density measures 0.718 g/cm2. This corresponds to a T score of -2.3 an d Z score of -0.7. Right femoral neck bone mineral density measures 0.722 g/cm2. This corresponds to a T score -2.3of an d Z score of -0.7. Mean femoral neck bone mineral density measures 0.720 g/cm2. This corresponds to a T score of -2.3 an d Z score of -0.7. XR/XR DEXA axial skeleton* [id number] IMPRESSION: Osteopenia lumbar spine. Osteopenia femoral necks. Patient's FRAX calculated 10 year probability for major osteoporotic fracture i s 11.1% and osteoporotic hip fracture is 2.5%. Bone mineral density lumbar spine increased 12.9% bone mineral density in the femoral necks increased 0.1%
== END 2024-04-11 12:45 | disposition home or self-care (01) ==
LOC: RAD 12:44
PROVIDERS: PCP Family Medicine; Visit Provider Internal Medicine Rheumatology
DX: Z13.820 Encounter for screening for osteoporosis (principal); M81.0 Age-related osteoporosis without current pathological fracture; M85.80 Other specified disorders of bone density and structure, unspecified site
CPT/HCPCS: 36415; 77080; 80076; 82306; 82310; 82565; 85025; 86140

== ENCOUNTER → 2024-04-26 12:59 | Outpatient (BNVA) | payer MEDICARE, OTHER, SELFPAY | PROVIDERS: PCP Family Medicine; Visit Provider Internal Medicine Rheumatology | DX: M81.0 Age-related osteoporosis without current pathological fracture (principal); Z79.899 Other long term (current) drug therapy | CPT/HCPCS: 36415; 82310; 83735; 83970; 84100; 84443; 85025; 99214 ==

== ENCOUNTER → 2024-05-10 12:17 | Outpatient (BNVA) | payer MEDICARE, OTHER, SELFPAY | PROVIDERS: PCP Family Medicine; Visit Provider Internal Medicine Cardiovascular Disease | DX: R07.9 Chest pain, unspecified (principal); Z82.49 Family history of ischemic heart disease and other diseases of the circulatory system | CPT/HCPCS: 99213 ==

== ENCOUNTER → 2024-06-16 08:08 | Outpatient (BNVA) | payer MEDICARE, OTHER, SELFPAY | PROVIDERS: PCP Family Medicine; Visit Provider Family Medicine | DX: Z13.220 Encounter for screening for lipoid disorders (principal); Z51.81 Encounter for therapeutic drug level monitoring; E78.6 Lipoprotein deficiency | CPT/HCPCS: 80053; 80061; 85025 ==

== ENCOUNTER 2024-07-07 10:01 | Oncology outpatient (recurring) (ONCR) | payer MEDICARE, OTHER, SELFPAY ==
[2024-07-07] MEDS: denosumab 60 mg SDV SUBCUT (10:29)
[2024-07-07 10:43] VITALS: BP 110/63; PULSE 60; RESP 16; TEMP 36.4; O2SAT 96
== END 2024-07-17 23:59 | disposition home or self-care (01) ==
LOC: ONCMED 10:02
PROVIDERS: PCP Family Medicine; Visit Provider Internal Medicine Rheumatology
DX: Z79.899 Other long term (current) drug therapy (principal); M81.0 Age-related osteoporosis without current pathological fracture
CPT/HCPCS: 96372; J0897

== ENCOUNTER 2025-01-03 10:03 | Oncology outpatient (recurring) (ONCR) | payer MEDICARE, OTHER, SELFPAY ==
[2025-01-03] MEDS: denosumab 60 mg SDV SUBCUT (10:31)
[2025-01-03 10:33] VITALS: BP 107/70; PULSE 71; O2SAT 98
== END 2025-01-15 23:59 | disposition home or self-care (01) ==
LOC: ONCMED 10:05
PROVIDERS: PCP Family Medicine; Visit Provider Internal Medicine Rheumatology
DX: M81.0 Age-related osteoporosis without current pathological fracture (principal); Z79.899 Other long term (current) drug therapy
CPT/HCPCS: 96372; J0897

== ENCOUNTER → 2025-04-23 13:03 | Outpatient (BNVA) | payer MEDICARE, OTHER, SELFPAY | PROVIDERS: PCP Family Medicine; Visit Provider Internal Medicine Rheumatology | DX: M81.0 Age-related osteoporosis without current pathological fracture (principal); Z79.899 Other long term (current) drug therapy | CPT/HCPCS: 36415; 80076; 82306; 82310; 82565; 85025; 85651; 86140; 99214 ==

== ENCOUNTER → 2025-05-29 15:58 | Outpatient (BNVA) | payer MEDICARE, OTHER, SELFPAY | PROVIDERS: PCP Family Medicine; Visit Provider Internal Medicine Cardiovascular Disease | DX: R00.2 Palpitations (principal) | CPT/HCPCS: 99214 ==

== ENCOUNTER → 2025-06-13 09:51 | Outpatient (BNVA) | payer MEDICARE, OTHER, SELFPAY | PROVIDERS: PCP Family Medicine; Visit Provider Family Medicine | DX: Z00.00 Encounter for general adult medical examination without abnormal findings (principal); Z13.6 Encounter for screening for cardiovascular disorders; Z79.899 Other long term (current) drug therapy | CPT/HCPCS: 80048; 80061 ==

== ENCOUNTER 2025-07-02 11:22 | Oncology outpatient (recurring) (ONCR) | payer MEDICARE, OTHER, SELFPAY ==
[2025-07-02 11:28] VITALS: BP 109/71; PULSE 71; RESP 16; TEMP 36.2; O2SAT 95
[2025-07-02] MEDS: denosumab 60 mg SDV (Infusion Clinic Only) SUBCUT (11:32)
== END 2025-07-17 23:59 | disposition home or self-care (01) ==
LOC: ONCMED 11:22
PROVIDERS: PCP Family Medicine; Visit Provider Internal Medicine Rheumatology
DX: M81.0 Age-related osteoporosis without current pathological fracture (principal); Z79.899 Other long term (current) drug therapy
CPT/HCPCS: 96372; J0897

== ENCOUNTER → 2025-10-05 12:06 | Outpatient (BNVA) | payer MEDICARE, OTHER, SELFPAY | PROVIDERS: PCP Family Medicine; Visit Provider Family Medicine | DX: E55.9 Vitamin D deficiency, unspecified (principal) | CPT/HCPCS: 82306 ==